=== PATIENT | female | born 1965 | race Caucasian/White ===

== ENCOUNTER 2022-03-27 13:38 | Outpatient (CLI) | payer BC | END 2022-03-27 13:39 | disposition home or self-care (01) | LOC: CSHMAMMO 13:38 → CSHRAD 13:39 | PROVIDERS: ATTEND Family Medicine | DX: Z12.31 Encounter for screening mammogram for malignant neoplasm of breast (principal); Z12.2 Encounter for screening for malignant neoplasm of respiratory organs; F17.218 Nicotine dependence, cigarettes, with other nicotine-induced disorders | CPT/HCPCS: 77063; 77067 ==

== ENCOUNTER 2022-03-27 14:12 | Outpatient (CLI) | payer BC | END 2022-03-27 14:13 | disposition home or self-care (01) | LOC: CSHCT 14:12 | PROVIDERS: ATTEND Family Medicine | DX: Z12.2 Encounter for screening for malignant neoplasm of respiratory organs (principal); F17.218 Nicotine dependence, cigarettes, with other nicotine-induced disorders | CPT/HCPCS: 71271 ==

== ENCOUNTER 2024-11-06 15:21 | Outpatient (CLI) | payer BC | END 2024-11-06 15:22 | disposition home or self-care (01) | LOC: CSHDTY/OP 15:21 | PROVIDERS: ATTEND Surgery | DX: E66.01 Morbid (severe) obesity due to excess calories (principal) | CPT/HCPCS: 97802 ==

== ENCOUNTER 2024-12-21 15:28 | Outpatient (CLI) | payer BC | END 2024-12-21 15:29 | disposition home or self-care (01) | LOC: CSHDTY/OP 15:28 | PROVIDERS: ATTEND Surgery | DX: E66.01 Morbid (severe) obesity due to excess calories (principal) | CPT/HCPCS: 97802 ==